=== PATIENT | female | born 1945 | race Caucasian/White ===

== ENCOUNTER 2018-11-15 08:55 | Outpatient (REF) | payer OTHER, SELFPAY ==
[2018-11-15 21:58] LABS: Anion Gap 10.5 mmol/L (3-11); BUN 20 mg/dL (7-18); CO2 25.5 mmol/L (21.0-32.0); CREATININE 0.76 mg/dL (0.55-1.02); Calcium 9.2 mg/dL (8.5-10.1); Calculated LDL 128 mg/dL; Chloride 104 mmol/L (98-107); Cholesterol 210 mg/dL (50-200); Glucose 82 mg/dL (70-100); HDL Cholesterol 65 mg/dL (40-60); Potassium 4.2 mmol/L (3.5-5.1); Sodium 140 mmol/L (136-145); TSH (W/Ref FT4) 6.55 uIU/mL (0.358-3.74); Triglyceride 85 mg/dL (30-150)
[2018-11-15 22:15] LABS: FREE T4 0.99 ng/dL (0.76-1.46)
== END 2018-11-15 09:15 ==
LOC: NCHCN 08:55
PROVIDERS: PCP Internal Medicine; Visit Provider Family Medicine
DX: I10 Essential (primary) hypertension (principal); E03.9 Hypothyroidism, unspecified
CPT/HCPCS: 80048; 80061; 83721; 84439; 84443

== ENCOUNTER 2020-01-12 10:32 | Outpatient (REF) | payer OTHER, SELFPAY ==
[2020-01-12 20:19] LABS: Anion Gap 7.3 mmol/L (3-11); BUN 17 mg/dL (7-18); CO2 28.7 mmol/L (21.0-32.0); CREATININE 0.76 mg/dL (0.55-1.02); Calcium 8.9 mg/dL (8.5-10.1); Chloride 102 mmol/L (98-107); Glucose 103 mg/dL (74-106); Potassium 3.9 mmol/L (3.5-5.1); Sodium 138 mmol/L (136-145); TSH 1.66 uIU/mL (0.36-3.74)
[2020-01-15 06:01] LABS: Vitamin D 25 Total 22.3 ng/ml (30-100)
== END 2020-01-12 10:52 ==
LOC: NCHCN 10:32
PROVIDERS: PCP Internal Medicine; Visit Provider Family Medicine
DX: E03.9 Hypothyroidism, unspecified (principal); I10 Essential (primary) hypertension; R05 Cough; L85.9 Epidermal thickening, unspecified; E55.9 Vitamin D deficiency, unspecified
CPT/HCPCS: 80048; 82306; 84443

== ENCOUNTER 2021-02-21 08:12 | Outpatient (REF) | payer MEDICARE, SELFPAY ==
[2021-02-21 16:39] LABS: ALT 20 U/L (14-59); AST 13 U/L (15-37); Albumin 3.8 g/dL (3.4-5.0); Alkaline Phosphatase 117 U/L (46-116); Anion Gap 8.1 mmol/L (3-11); BUN 16 mg/dL (7-18); Bilirubin, Total 0.7 mg/dL (0.2-1.0); CO2 29.9 mmol/L (21.0-32.0); CREATININE 0.8 mg/dL (0.55-1.02); Calcium 9.4 mg/dL (8.5-10.1); Chloride 105 mmol/L (98-107); Glucose 94 mg/dL (74-106); Potassium 4.3 mmol/L (3.5-5.1); Sodium 143 mmol/L (136-145); TSH 2.54 uIU/mL (0.36-3.74); Total Protein 7.1 g/dL (6.4-8.2)
[2021-02-21 21:43] LABS: Calculated LDL 100 mg/dL (<100); Cholesterol 190 mg/dL (<200); HDL Cholesterol 65 mg/dL (40-60); Triglyceride 127 mg/dL (<150)
[2021-02-24 02:55] LABS: Vitamin D 25 Total 19.6 ng/mL (30-100)
== END 2021-02-21 08:13 | disposition home or self-care (01) ==
LOC: NCHCN 08:12
PROVIDERS: PCP Internal Medicine; Visit Provider Family Medicine
DX: E03.9 Hypothyroidism, unspecified (principal); E66.01 Morbid (severe) obesity due to excess calories; E78.5 Hyperlipidemia, unspecified; Z13.21 Encounter for screening for nutritional disorder; Z00.00 Encounter for general adult medical examination without abnormal findings
CPT/HCPCS: 80053; 80061; 82306; 84443

== ENCOUNTER 2022-02-17 22:42 | Outpatient (REF) | payer MEDICARE, SELFPAY ==
[2022-02-17 21:40] LABS: Anion Gap 5.8 mmol/L (3-11); BUN 16 mg/dL (7-18); CO2 28.2 mmol/L (21.0-32.0); CREATININE 0.8 mg/dL (0.55-1.02); Calcium 9.9 mg/dL (8.5-10.1); Chloride 103 mmol/L (98-107); Estimated GFR 77.27 (mL/min/1.73m2); Glucose 92 mg/dL (74-106); Sodium 137 mmol/L (136-145)
[2022-02-19 05:04] LABS: Vitamin D 25 Total 17.3 ng/mL (30-100)
== END 2022-02-17 22:43 | disposition home or self-care (01) ==
LOC: NCHCN 22:42
PROVIDERS: PCP Internal Medicine; Visit Provider Family Medicine
DX: I10 Essential (primary) hypertension (principal); E03.9 Hypothyroidism, unspecified; E55.9 Vitamin D deficiency, unspecified
CPT/HCPCS: 80048; 82306; 84443

== ENCOUNTER 2022-04-22 10:51 | Outpatient (REF) | payer MEDICARE, SELFPAY ==
[2022-04-22 15:03] LABS: Anion Gap 6.9 mmol/L (3-11); BUN 21 mg/dL (7-18); CO2 29.1 mmol/L (21.0-32.0); CREATININE 0.9 mg/dL (0.55-1.02); Calcium 9.8 mg/dL (8.5-10.1); Chloride 104 mmol/L (98-107); Estimated GFR 67.08 (mL/min/1.73m2); Glucose 99 mg/dL (74-106); Potassium 3.8 mmol/L (3.5-5.1); Sodium 140 mmol/L (136-145)
== END 2022-04-22 10:52 | disposition home or self-care (01) ==
LOC: NCHCN 10:51
PROVIDERS: PCP Internal Medicine; Visit Provider Family Medicine
DX: I10 Essential (primary) hypertension (principal)
CPT/HCPCS: 80048

== ENCOUNTER 2023-05-10 16:36 | Outpatient (REF) | payer MEDICARE, SELFPAY ==
[2023-05-10 21:58] LABS: Anion Gap 6.3 mmol/L (3-11); BUN 17 mg/dL (7-18); CO2 28.7 mmol/L (21.0-32.0); CREATININE 0.9 mg/dL (0.55-1.02); Calcium 9.8 mg/dL (8.5-10.1); Calculated LDL 195 mg/dL (<100); Chloride 103 mmol/L (98-107); Cholesterol 286 mg/dL (<200); Estimated GFR 66.67 (mL/min/1.73m2); Glucose 95 mg/dL (74-106); HDL Cholesterol 64 mg/dL (40-60); Potassium 4.1 mmol/L (3.5-5.1); Sodium 138 mmol/L (136-145); TSH 2.97 uIU/mL (0.36-3.74); Triglyceride 135 mg/dL (<150)
== END 2023-05-10 16:37 | disposition home or self-care (01) ==
LOC: NCHCN 16:36
PROVIDERS: PCP Internal Medicine; Visit Provider Family Medicine
DX: E78.5 Hyperlipidemia, unspecified (principal); E03.9 Hypothyroidism, unspecified
CPT/HCPCS: 80048; 80061; 84443

== ENCOUNTER 2024-05-15 13:44 | Outpatient (REF) | payer MEDICARE, SELFPAY ==
[2024-05-15 15:49] LABS: Anion Gap 10.3 mmol/L (3-11); BUN 19 mg/dL (7-18); CO2 26.7 mmol/L (21.0-32.0); CREATININE 0.9 mg/dL (0.55-1.02); Calcium 9.6 mg/dL (8.5-10.1); Calculated LDL 130 mg/dL (<100); Chloride 106 mmol/L (98-107); Cholesterol 222 mg/dL (<200); Estimated GFR 66.26 (mL/min/1.73m2); Glucose 97 mg/dL (74-106); HDL Cholesterol 73 mg/dL (40-60); Potassium 4.1 mmol/L (3.5-5.1); Sodium 143 mmol/L (136-145); TSH 4.47 uIU/mL (0.36-3.74); Triglyceride 97 mg/dL (<150)
== END 2024-05-15 13:45 | disposition home or self-care (01) ==
LOC: NCHCN 13:44
PROVIDERS: PCP Internal Medicine; Visit Provider Family Medicine
DX: I10 Essential (primary) hypertension (principal)
CPT/HCPCS: 80048; 80061; 84443